=== PATIENT | female | born 2000 | race Caucasian/White ===

== ENCOUNTER → 2020-08-20 16:05 | Outpatient (BNVA) | payer MEDICAID, SELFPAY | PROVIDERS: PCP Nurse Practitioner; Visit Provider Nurse Practitioner | DX: N94.6 Dysmenorrhea, unspecified (principal) | CPT/HCPCS: 80053; 81003; 85025 ==

== ENCOUNTER → 2022-11-10 09:56 | Outpatient (BNVA) | payer MEDICAID, SELFPAY | PROVIDERS: PCP Nurse Practitioner; Visit Provider Nurse Practitioner | DX: I10 Essential (primary) hypertension (principal); E55.9 Vitamin D deficiency, unspecified | CPT/HCPCS: 80053; 80061; 82306; 84443; 85025 ==

== ENCOUNTER → 2022-12-23 12:32 | Outpatient (BNVA) | payer MEDICAID, SELFPAY | PROVIDERS: PCP Nurse Practitioner; Visit Provider Internal Medicine | DX: R07.9 Chest pain, unspecified (principal); R03.0 Elevated blood-pressure reading, without diagnosis of hypertension | CPT/HCPCS: 93005; 99204 ==

== ENCOUNTER 2023-01-07 14:41 | Outpatient (CLI) | payer MEDICAID, SELFPAY ==
--- NOTE | 2023-01-07 14:30 | USCV_ITS ---
Lul Bhakta Age: 22 Gender: F : 2000 Exam Date: 01/07/2023 15:18 Ordering Phys: Laith Ramirez M.D ([email or web address]) Technologist: MARK [place] [facility] [place]: HTN BP: 143 / 98 HR: 131 Rhythm: Sinus Technical Quality: Technically difficult study MEASUREMENTS (Male / Female) Normal Values 2D ECHO LVOT Diameter 2.0 cm LV Ejection Fraction MOD 2C 65.2 % LV Ejection Fraction 2C AL 65.0 % LA Diameter 2.8 cm LA Width 3.0 cm LA Height 3.7 cm RA Width 2.9 cm RA Height 3.9 cm Aorta at Sinotubular Diameter 2.1 cm M-MODE Aortic Annulus Diameter 2.6 cm LA Ao Ratio MM 1.0 DOPPLER AV Peak Velocity 163.0 cm/s LVOT Peak Velocity 128.0 cm/s AV Area Cont Eq vti 2.0 cm squared AV Area Cont Eq pk 2.5 cm squared MV Peak Velocity 105.0 cm/s MV Area PHT 3.9 cm squared Mitral E to A Ratio 1.1 MV E' Velocity 60.5 cm/s Mitral E to MV E' Ratio 7.8 Mitral E to LV E' Lateral Ratio 6.1 Mitral E to LV E' Septal Ratio 11.0 TR Peak Velocity 238.9 cm/s TR Peak Gradient 22.8 mmHg TR Mean Velocity 209.8 cm/s TR Mean Gradient 17.6 mmHg TR Velocity Time Integral 61.2 cm TV Peak E Velocity 48.0 cm/s Right Atrial Pressure 8.0 mmHg Pulmonary Artery Systolic Pressu 30.8 mmHg PV Peak Velocity 193.0 cm/s RV Acceleration Time 0.1 s RV Ejection Time 0.2 s RV AcT/ET 0.4 FINDINGS Left Ventricle Right Ventricle Right Atrium Left Atrium Mitral Valve Aortic Valve Tricuspid Valve Pulmonic Valve Pericardium Aorta IVC CONCLUSIONS Technically very limited quality echocardiogram because of poor ultrasonic windows and tachycardia. LV systolic function is normal with EF of 60 to 65%. No regional wall motion abnormalities are seen. Valve structures are not very well visualized. Mild mitral regurgitation Trace tricuspid regurgitation. Insufficient TR jet to calculate RVSP. No comparison studies are available Laith Ramirez MD (Electronically Signed) Final Date: 16 January 2023 10:42 S
== END 2023-01-07 14:42 | disposition home or self-care (01) ==
LOC: RAD 14:50
PROVIDERS: PCP Nurse Practitioner; Visit Provider Internal Medicine
DX: R06.02 Shortness of breath (principal); R07.9 Chest pain, unspecified
CPT/HCPCS: 93306

== ENCOUNTER → 2024-02-01 12:25 | Outpatient (BNVA) | payer MEDICAID, SELFPAY | PROVIDERS: PCP Nurse Practitioner; Visit Provider Nurse Practitioner | DX: E55.9 Vitamin D deficiency, unspecified (principal) | CPT/HCPCS: 80053; 82306; 85025 ==

== ENCOUNTER → 2024-12-13 14:47 | Outpatient (BNVA) | payer MEDICAID, SELFPAY | PROVIDERS: PCP Nurse Practitioner; Visit Provider Nurse Practitioner | DX: F41.8 Other specified anxiety disorders (principal); E55.9 Vitamin D deficiency, unspecified | CPT/HCPCS: 80053; 82306; 82607; 84443 ==

== ENCOUNTER 2025-04-17 19:00 | Emergency (ER) | payer MEDICAID, SELFPAY ==
[2025-04-17 19:14] VITALS: BP 163/104; PULSE 115; RESP 22; TEMP 36.9; O2SAT 96; BMI 31.1
[2025-04-17 19:19] VITALS: BP 163/104; PULSE 115; RESP 22; TEMP 36.9; O2SAT 96
--- NOTE | 2025-04-17 19:44 | XRR_ITS ---
PROCEDURE INFORMATION: Exam: XR Chest Exam date and time: 04/17/2025 7:48 PM Age: 25 years old Clinical indication: Other: Seizure TECHNIQUE: Imaging protocol: Radiologic exam of the chest. Views: 1 view. COMPARISON: No relevant prior studies available. FINDINGS: Lungs: Unremarkable. No consolidation. Pleural spaces: Unremarkable. No pleural effusion. No pneumothorax. Heart/Mediastinum: Unremarkable. No cardiomegaly. Bones/joints: Unremarkable. XR/XR chest 1V portable [id number] IMPRESSION: No acute findings.
[2025-04-17 19:56] LABS: Hematocrit 44.3 % (36-47); Hemoglobin 14.30 g/dL (11.27-16.99); Mean Corpuscular HGB Conc 32.3 g/dL (30-55); Mean Corpuscular Hemoglobin 25.1 pg (27-33); Mean Corpuscular Volume 77.7 fl (85-98); Nucleated Red Blood Cells % 0 %; Platelet Count 296 10^3/cmm (157-399); Red Blood Count 5.70 10^6/uL (3.85-5.65); White Blood Count 10.14 10^3/uL (3.29-11.43)
[2025-04-17 20:09] LABS: Alanine Aminotransferase 29 U/L (0-33); Albumin Level 4.7 g/dL (3.5-5.2); Alkaline Phosphatase 71 U/L (35-105); Anion Gap 16.9 (5-19); Aspartate Amino Transferase 19 U/L (0-32); Blood Urea Nitrogen 11 mg/dL (6-20); Calcium 9.3 mg/dL (8.5-10.5); Carbon Dioxide 22 mmol/L (22-29); Chloride 102 mmol/L (98-107); Creatinine Clr Calc Pharmacy 181.7714; Globulin 3.6 g/dL (1.3-4.6); Glucose 105 mg/dL (65-115); Osmolality Calculated 284 mOsm/kg (285-295); Potassium 3.9 mmol/L (3.5-5.1); Sodium 137 mmol/L (136-145); Total Protein 8.3 g/dL (6.6-8.7)
[2025-04-17 20:10] LABS: Lactic Sepsis W/Reflex 2.2 mmol/L (0.5-2.2)
[2025-04-17 20:16] LABS: Procalcitonin 0.04 ng/mL (0-0.5)
[2025-04-17 20:17] LABS: PCP Screen Urine Negative (Negative)
--- NOTE | 2025-04-17 21:31 | W.ED.SEIZURE ---
HPI - Seizure General: Chief Complaint: Seizure Stated Complaint: seizure Time Seen by Provider: 04/17/25 19:17 History of Present Illness: HPI Narrative: Patient is a 25-year-old female with a history of cerebral palsy presents with a chief complaint of generalized tonic-clonic seizure. Patient had seizures as a child but has not had one in a long time. Usually, seizure was associated with fever or when she was ill. She is not on seizure medication. Patient has not had a fever and does not feel ill. She denies any headache. No chest pain, cough or shortness of breath. No abdominal pain, nausea or vomiting and patient has been eating and drinking normally. She has not had any urinary symptoms. Patient did not bite her tongue but did lose control of her bladder. Mother describes the seizure as a generalized tonic-clonic seizure. She did not note eye deviation, states eyes rolled in the back of her head. Of note, patient was lying down when the event happened. Seizure activity lasted appox 7 minutes. Patient was confused about 15 to 20 minutes after. Related Data Home Medications ?Medication ?Instructions ?Recorded ?Confirmed cholecalciferol (vitamin D3) 50 50 mcg PO DAILY 12/13/24 04/05/25 mcg (2,000 unit) capsule Previous Rx's ?Medication ?Instructions ?Recorded Ramp and lift for van #1 ea 06/02/21 Power chair #1 ea 02/01/24 T4523 Diaper adult #200 ea 02/01/24 ibuprofen 400 mg tablet 400 mg PO .2 times #60 tabs 12/13/24 hydroxyzine pamoate 25 mg capsule 25 mg PO BID PRN acute anxiety and 02/05/25 sleep #60 caps desvenlafaxine succinate 50 mg 50 mg PO .in evening #30 tabs 04/05/25 tablet,extended release 24 hr (Pristiq) valsartan 40 mg tablet (Diovan) 40 mg PO DAILY #30 tabs 04/05/25 Allergies Allergy/AdvReac Type Severity Reaction Status Date / Time lamotrigine (From Lamictal) Allergy Unknown unknown Verified 04/05/25 14:44 [facility] ED [facility]: Medical History (Updated 04/17/25 @ 21:52 by Rosanna Otero MD) Dysmenorrhea, unspecified Wheelchair dependence Nocturnal and diurnal enuresis Spastic quadriplegic cerebral palsy Surgical History History of appendectomy Family History Other Diabetes Hypertension Social History Smoking and tobacco/nicotine status: never used tobacco/nicotine Second hand smoke exposure: No Alcohol intake: never Substance/Drug Use: never Adopted: No Caregiver/support person: Yes Lives independently: No Household members: family Housing: House Marital status: Single Number of children: 0 service: No Current occupational status: disabled Pets and animals: Yes Do you think of yourself as: Straight/Heterosexual Current gender identity: Female Physical Exam Narrative: EXAM NARRATIVE: Vitals were reviewed. Patient is alert, oriented and able to provide history. Patient has no evidence of trauma to face or scalp. Patient has clear lung sounds bilaterally, normal heart sounds. Patient is tachycardic. Patient has no abdominal pain with palpation of the abdomen, no pain with percussion of the flanks. No injury to any extremity. No lower extremity swelling or asymmetry. Course Vital Signs: Vital signs: Vital Signs Temperature 98.4 F 04/17/25 19:19 Pulse Rate 114 H 04/17/25 21:47 Respiratory Rate 20 H 04/17/25 21:47 Blood Pressure 152/99 04/17/25 21:47 Pulse Oximetry 98 04/17/25 21:47 Oxygen Delivery Me thod Room Air 04/17/25 21:47 MDM - Seizure MDM Narrative Medical decision making narrative: Patient is a 25-year-old female presenting with a chief complaint of seizure-like activity at home. Patient is currently not treated with seizure medications. Differential diagnosis includes but is not limited to, underlying illness such as pneumonia, urinary tract infection, electrolyte abnormality, traumatic injury, primary seizure disorder/epilepsy, other. On initial exam, patient is hemodynamically stable though she is quite tachycardic. She was treated with IV fluids which did not significantly help improve her heart rate. Patient was evaluated with basic lab work which shows a normal white blood cell count and no anemia. She does not have any actionable electrolyte abnormalities and has normal kidney function, liver function and anion gap. She has a normal lactic acid. UDS is negative. Given patient's tachycardia and mild tachypnea, considered a PE and added EKG, troponin and D-dimer to evaluation. Patient's chest x-ray is clear of consolidation, pleural effusion or pneumothorax. Mother states that she has a history of coagulation problems and takes Eliquis. Lab Data 04/17/25 19:40 04/17/25 19:40 Labs: Radiology Impressions Chest X-Ray 04/17/25 19:44 IMPRESSION: No acute findings. Laboratory Results WBC 10.14 10^3/uL (3.29-11.43) 04/17/25 19:40 RBC 5.70 10^6/uL (3.85-5.65) H 04/17/25 19:40 Hgb 14.30 g/dL (11.27-16.99) 04/17/25 19:40 Hct 44.3 % (36-47) 04/17/25 19:40 MCV 77.7 fl (85-98) L 04/17/25 19:40 MCH 25.1 pg (27-33) L 04/17/25 19:40 MCHC 32.3 g/dL (30-55) 04/17/25 19:40 RDW 13.9 % (12.1-15.1) 04/17/25 19:40 Plt Count 296 10^3/cmm (157-399) 04/17/25 19:40 MPV 9.0 fL (7.4-10.4) 04/17/25 19:40 Neut % (Auto) 77.2 % 04/17/25 19:40 Lymph % (Auto) 17.6 % 04/17/25 19:40 Harrison % (Auto) 4.0 % 04/17/25 19:40 Eos % (Auto) 0.4 % 04/17/25 19:40 Baso % (Auto) 0.3 % 04/17/25 19:40 Neut # (Auto) 7.83 10^3/uL (1.8-7.7) H 04/17/25 19:40 Lymph # (Auto) 1.8 10^3/uL (0.8-4.8) 04/17/25 19:40 Harrison # (Auto) 0.4 10^3/uL (0.2-0.9) 04/17/25 19:40 Eos # (Auto) 0.0 10^3/uL (0.0-0.8) 04/17/25 19:40 Baso # (Auto) 0.0 10^3/uL (0.0-0.1) 04/17/25 19:40 Nucleated RBC % (auto) 0 % 04/17/25 19:40 Nucleated RBCs # 0.0 /100WBC 04/17/25 19:40 Sodium 137 mmol/L (136-145) 04/17/25 19:40 Potassium 3.9 mmol/L (3.5-5.1) 04/17/25 19:40 Chloride 102 mmol/L (98-107) 04/17/25 19:40 Carbon Dioxide 22 mmol/L (22-29) 04/17/25 19:40 Anion Gap 16.9 (5-19) 04/17/25 19:40 BUN 11 mg/dL (6-20) 04/17/25 19:40 Creatinine 0.5 mg/dL (0.5-0.9) 04/17/25 19:40 GFR Calculation 148.0 mL/min (90-130) H 04/17/25 19:40 Glucose 105 mg/dL (65-115) 04/17/25 19:40 Calculated Osmolality 284 mOsm/kg (285-295) L 04/17/25 19:40 Lactic Acid 2.2 mmol/L (0.5-2.2) 04/17/25 19:40 Calcium 9.3 mg/dL (8.5-10.5) 04/17/25 19:40 Total Bilirubin 0.2 mg/dL (0.15-1.2) 04/17/25 19:40 AST 19 U/L (0-32) 04/17/25 19:40 ALT 29 U/L (0-33) 04/17/25 19:40 Alkaline Phosphatase 71 U/L (35-105) 04/17/25 19:40 Total Protein 8.3 g/dL (6.6-8.7) 04/17/25 19:40 Albumin 4.7 g/dL (3.5-5.2) 04/17/25 19:40 Globulin 3.6 g/dL (1.3-4.6) 04/17/25 19:40 Procalcitonin 0.04 ng/mL (0-0.5) 04/17/25 19:40 Urine Opiates Screen Negative ng/mL (Negative) 04/17/25 20:00 Ur Barbiturates Screen Negative ng/mL (Negative) 04/17/25 20:00 Ur Phencyclidine Scrn Negative ng/mL (Negative) 04/17/25 20:00 Ur Amphetamines Screen Negative ng/mL (Negative) 04/17/25 20:00 U Benzodiazepines Scrn Negative ng/mL (Negative) 04/17/25 20:00 Urine Cocaine Screen Negative ng/mL (Negative) 04/17/25 20:00 U Marijuana (THC) Screen Negative ng/mL (Negative) 04/17/25 20:00 All radiology interpretation(s) finalized by discharge EKG Data EKG 1: Interpretation: Normal sinus rhythm with a heart rate of 95, normal axis, normal intervals, no evidence of ST segment elevation or ischemic change. Discharge Plan Discharge Clinical Impression: Seizure, Tachycardia Condition: Stable Prescriptions: New levetiracetam [Keppra] 500 mg tablet 500 mg PO Q12H 30 Days Qty: 60 2RF No Action (DME) Ramp and lift for van See Rx Instructions .Route .MEDSUPPLY Qty: 1 0RF Rx Instructions: As directed valsartan [Diovan] 40 mg tablet 40 mg PO DAILY Qty: 30 2RF desvenlafaxine succinate [Pristiq] 50 mg tablet extended release 24 hr 50 mg PO .in evening Qty: 30 2RF Rx Instructions: for anxiety and mood (DME) T4523 Diaper adult See Rx Instructions .Route .MEDSUPPLY Qty: 200 11RF Rx Instructions: As directed (DME) Power chair See Rx Instructions .Route .MEDSUPPLY Qty: 1 0RF Rx Instructions: As directed cholecalciferol (vitamin D3) 50 mcg (2,000 unit) capsule 50 mcg PO DAILY ibuprofen 400 mg tablet 400 mg PO .2 times Qty: 60 2RF hydroxyzine pamoate 25 mg capsule 25 mg PO BID PRN (Reason: acute anxiety and sleep) Qty: 60 1RF Referrals: Rico Lyon, [facility] [Primary Care Provider, Family Practice] Patient Instructions: Epilepsy (DC), Tachycardia (ED) Activity Restrictions/Additional Instructions: Please continue to monitor your condition closely at home. Start Keppra (a medication for seizure) as prescribed. If your condition worsens or additional concerns arise, please return promptly to the emergency department for reassessment. Follow up with your primary care doctor within one week to recheck your heart rate; if it remains elevated you may need to be started on medications. Print Language: German Coding Level of Care Code ED Foreign Food Cook Specialty for Jennifer Correia
--- NOTE | 2025-04-17 21:38 | ECG_ITS ---
[facility] Test Date: 2025-04-17 Pat Name: Lul Bhakta Department: Room: Gender: Female Organizational Development Specialist: : 2000 Requested By: Rosanna Otero Order Number: [id number] Saud MD: Jared Najera M.D. Measurements Intervals Brandon Rate: 95 P: 58 OK: 124 QRS: 21 QRSD: 93 T: 30 QT: 333 QTc: 419 Interpretive Statements SINUS RHYTHM Compared to ECG 12/23/2022 12:41:42 Sinus tachycardia no longer present T-wave abnormality no longer present Electronically Signed On 04-18-2025 23:51:07 CDT by Jared Najera M.D. [email or web address]
[2025-04-17 21:41] LABS: Reflex Lactate Order REFLEX LACTIC ORDERD
[2025-04-17 21:47] VITALS: BP 152/99; PULSE 114; RESP 20; O2SAT 98
[2025-04-17] MEDS: metoprolol tartrate 1 mg/1 mL SDV 5 mL 5 MG IVP (21:49)
[2025-04-17] MEDS: levETIRAcetam 1,000 MG/100 ML PREMIX 400 MG IV (22:04)
[2025-04-17 22:15] LABS: Troponin(5th) Baseline 9 ng/L (0-10)
[2025-04-17 22:20] LABS: Glucose Urine UA Negative (Normal); Nitrate Urine Negative (Negative); Specific Gravity, Urine 1.022 (1.005-1.030)
[2025-04-17 22:26] LABS: Troponin 5 2HR 13.55 ng/L (0-10); Troponin 5 2HR Delta 4.55 ABS# (0-10)
[2025-04-17 22:28] LABS: Lactic Acid level (Lactate) 1.9 mmol/L (0.5-2.2)
[2025-04-17 22:39] LABS: Respiratory Syncytial Virus Ce NEGATIVE (Negative); SARS-CoV-2 PCR NEGATIVE (Negative)
[2025-04-17 22:40] LABS: UA Slide Review UA Slide Review Perf
[2025-04-17 23:26] VITALS: BP 116/90; PULSE 88; RESP 20; O2SAT 95
[2025-04-18 00:24] VITALS: BP 132/73; PULSE 87; RESP 18; O2SAT 98
--- NOTE | 2025-04-19 17:04 | DCPLANNER ---
faxed outpatient eeg order to scheduling
== END 2025-04-18 00:27 | disposition home or self-care (01) ==
PROVIDERS: Emergency Provider Emergency Medicine; PCP Nurse Practitioner
DX: R56.9 Unspecified convulsions (principal); R00.0 Tachycardia, unspecified
CPT/HCPCS: 36415; 71045; 80053; 80306; 81001; 83605; 84145; 84484; 85025; 85378; 87086; 87637; 93005; 96365; 96366; 96375; 99285; J1953; J3490; J7120; J9999

== ENCOUNTER → 2025-05-21 14:54 | Outpatient (BNVA) | payer MEDICAID, SELFPAY | PROVIDERS: PCP Nurse Practitioner; Referring Provider Emergency Medicine; Visit Provider Specialist | DX: G40.909 Epilepsy, unspecified, not intractable, without status epilepticus (principal); R03.0 Elevated blood-pressure reading, without diagnosis of hypertension; G80.0 Spastic quadriplegic cerebral palsy; N31.9 Neuromuscular dysfunction of bladder, unspecified | CPT/HCPCS: 99205 ==

== ENCOUNTER 2025-06-12 13:52 | Outpatient (CLI) | payer MEDICAID, SELFPAY ==
--- NOTE | 2025-06-12 14:30 | MR_ITS ---
WS: [id number] MRI HEAD WITHOUT CONTRAST TECHNIQUE: Sagittal T1, T2 axial, T2 axial FLAIR, axial and coronal T1 images, axial susceptibility weighted imaging, axial diffusion weighted images, and coronal T2 images were obtained. CLINICAL INFORMATION: Epilepsy COMPARISON: None. FINDINGS: No evidence of restricted diffusion to suggest acute ischemia. Normal posterior fossa. Normal vascular flow voids at the skull base. No extra-axial fluid collections. Paranasal sinuses and mastoid air cells are well aerated. Normal posterior nasopharynx. No hemosiderin on susceptibility-weighted imaging. Temporal lobes and hippocampal formations are normal in appearance. No signal normalities in the mesial temporal lobes. 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 Overall decreased white matter volume is developmental. MR/MR head wo con* [id number] IMPRESSION: 1. 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 Temporal lobes and hippocampal formations are normal in appearance. No evid ence of mesial temporal sclerosis. 3. No hemosiderin. 4. No other acute findings.
== END 2025-06-12 13:53 | disposition home or self-care (01) ==
LOC: RAD 13:53
PROVIDERS: PCP Nurse Practitioner; Visit Provider Specialist
DX: G40.309 Generalized idiopathic epilepsy and epileptic syndromes, not intractable, without status epilepticus (principal); R93.0 Abnormal findings on diagnostic imaging of skull and head, not elsewhere classified
CPT/HCPCS: 70551

== ENCOUNTER → 2025-07-19 09:36 | Outpatient (BNVA) | payer MEDICAID, SELFPAY | PROVIDERS: PCP Nurse Practitioner; Visit Provider Specialist | DX: G80.0 Spastic quadriplegic cerebral palsy (principal); R25.2 Cramp and spasm; G40.909 Epilepsy, unspecified, not intractable, without status epilepticus; R03.0 Elevated blood-pressure reading, without diagnosis of hypertension; N31.9 Neuromuscular dysfunction of bladder, unspecified | CPT/HCPCS: 64644; 99213; J0585; J9999 ==